=== PATIENT | male | born 1965 | race Caucasian/White ===

== ENCOUNTER 2025-06-07 14:09 | Outpatient (CLI) | payer MEDICAID ==
--- NOTE | 2025-06-07 16:26 | RADIOLOGY REPORT ---
EXAM: MR MRI UPPER EXTREMITY LEFT INDICATION: PAIN IN LEFT SHOULDER TECHNIQUE: Multiplanar, multisequence MR images of the left shoulder were obtained in the absence of gadolinium contrast material. COMPARISON: None FINDINGS: [CORACOACROMIAL ARCH]: Mild capsular hypertrophy of the acromioclavicular joint. Intact coracoclavicu lar ligaments. Intact coracoacromial ligaments. Mild amount of subacromial/subdeltoid bursal distenti on. [ROTATOR CUFF]: Suspected full-thickness fissure like tear of the anterior supraspinatus tendon (7-8) . Superimposed mild tendinosis of the superior rotator cuff. Insertional cysts of the anterior leadin g edge of the anterior facet of the greater tuberosity. [BICEPS TENDON]: Intermediate signal intensity of the intra-articular segment. Correlate for tendino sis, which may be a source of internal impingement. [LABRUM]: Volume loss of the posterior labrum [CARTILAGE]: No measurable cartilage defect. [GLENOHUMERAL JOINT]: Small amount of fluid in the subscapularis recess. No intra-articular body. [BONES]: No acute fracture, osseous contusion, or aggressive focal osseous lesion. [MUSCLES]: Normal muscle bulk of the rotator cuff muscles. [NEUROVASCULAR/LYMPH NODES]: Normal. [OTHER]: None. IMPRESSION: 1. Intermediate signal intensity of the intra-articular segment. Correlate for tendinosis, which may be a source of internal impingement. 2. Suspected inconspicuous full-thickness fissure like tear of the anterior supraspinatus tendon.
--- NOTE | 2025-06-07 17:53 | RADIOLOGY REPORT ---
EXAM: MR MRI UPPER EXTREMITY RIGHT INDICATION: PAIN IN RIGHT SHOULDER TECHNIQUE: Multiplanar, multisequence MR images of the right shoulder were obtained in the absence of gadolinium contrast material. COMPARISON: None FINDINGS: [CORACOACROMIAL ARCH]: Mild capsular hypertrophy of the acromioclavicular joint. Intact coracoclavicu lar ligaments. Intact coracoacromial ligaments. Mild amount of subacromial/subdeltoid bursal distenti on. [ROTATOR CUFF]: Full-thickness horizontally oriented tear of the anterior leading edge of the suprasp inatus tendon of the greater tuberosity footprint (7-4). Mild tendinosis of the superior rotator cuf f. [BICEPS TENDON]: Intact without tenosynovitis. [LABRUM]: Intact. [CARTILAGE]: No measurable cartilage defect. [GLENOHUMERAL JOINT]: No joint effusion. No intra-articular body. [BONES]: No acute fracture, osseous contusion, or aggressive focal osseous lesion. [MUSCLES]: Normal muscle bulk of the rotator cuff muscles. [NEUROVASCULAR/LYMPH NODES]: Normal. [OTHER]: None. IMPRESSION: 1. Full-thickness horizontally oriented tear of the anterior leading edge of the supraspinatus tendon at the greater tuberosity footprint. 2. Mild tendinosis of the superior rotator cuff. 3. Mild amount of subacromial/subdeltoid bursal distention.
== END 2025-06-07 23:59 | disposition home or self-care (01) ==
LOC: MRI02 14:09
PROVIDERS: ATTEND Physician Assistant Surgical
DX: M75.121 Complete rotator cuff tear or rupture of right shoulder, not specified as traumatic (principal); M75.122 Complete rotator cuff tear or rupture of left shoulder, not specified as traumatic; M25.511 Pain in right shoulder; M25.512 Pain in left shoulder; M75.31 Calcific tendinitis of right shoulder; M89.312 Hypertrophy of bone, left shoulder
CPT/HCPCS: 73221